=== PATIENT | male | born 1990 ===

== ENCOUNTER → 2022-08-18 | Outpatient (CLI) | payer OTHER ==
[2022-08-20 00:06] LABS: CHLAMYDIA TRACHOMATIS, NAA Negative (Negative)
== END | disposition home or self-care (01) ==
LOC: LAB SHORT 09:00 → LAB 09:00
PROVIDERS: Physician Assistant
DX: N50.819 Testicular pain, unspecified (principal)
CPT/HCPCS: 87086; 87491; 87591